=== PATIENT | female | born 1980 | race Two or more races ===

== ENCOUNTER 2016-12-21 14:30 | Inpatient (IN) | payer OTHER ==
[2016-12-21 15:46] VITALS: BMI 29.1
--- NOTE | 2016-12-21 17:28 | HP ---
COWS - Scale Resting Pulse: 0= [place] 80 or Below Sweatin= Chills/Flushing Restless Observation: 1= Difficult to Sit Still Pupil Size: 1= Pupils >than Normal Bone or Joint Aches: 2= Severe Diffuse Aches Runny Nose/ Eye Tearin= Runny Nose/Eyes GI Upset > 30mins: 2= Nausea/Diarrhea Tremor Observation: 2= Slight Tremor Visible Yawning Observation: 0= None Anxiety or Irritability: 2=Irritable/Anxious Goose Flesh Skin: 0=Smooth Skin COWS Score: 13 Admission [facility] Chief Complaint: WITHDRAWAL SX Allergies/Adverse Reactions: Allergies Allergy/AdvReac Type Severity Reaction Status Date / Time aspirin Allergy Severe Difficulty Verified 12/21/16 16:37 Breathing bee venom protein (honey bee) Allergy Severe Difficulty Verified 12/21/16 16:37 Breathing History of Present Illness: 36 YEARS OLD FEMALE WITH LONG HISTORY OF OPIATE, COCAINE, MARIJUANA, NICOTINE DEPENDENCE HAS ASTHMA HEPATITIS C AND BIPOLAR II IS ADMITTED TO DETOX Exam Limitations: No Limitations - Ebola screening Have you traveled outside of the country in the last 21 days: No Have you had contact with anyone from an Ebola affected area: No Have you been sick,other than usual withdrawal symptoms: No Do you have a fever: No - Review of Systems Constitutional: Changes in sleep, Weight Stable EENT: reports: No Symptoms Reported Respiratory: reports: SOB with Exertion Cardiac: reports: No Symptoms Reported GI: reports: Nausea, Poor Fluid Intake, Indigestion, Abdominal cramping : reports: No Symptoms Reported Musculoskeletal: reports: Back Pain, Joint Pain, Muscle Pain, Neck Pain Integumentary: reports: Change in Color (BOTH INNER ELBOWS + NECK BILATERALLY = IV OPIATE) Neuro: reports: Tremors Endocrine: reports: No Symptoms Reported Hematology: reports: No Symptoms Reported Psychiatric: reports: Judgement Intact, Orientated x3, Anxious, Depressed Other Systems: Reviewed and Negative Patient History - Patient Medical History Hx Anemia: No Hx Asthma: Yes Hx Chronic Obstructive Pulmonary Disease (COPD): No Hx Cancer: No Hx Cardiac Disorders: No Hx Congestive Heart Failure: No Hx Hypertension: No Hx Pacemaker: No HX Cerebrovascular Accident: No Hx Seizures: No Hx Dementia: No Hx Diabetes: No Hx Gastrointestinal Disorders: No Hx Liver Disease: No Hx Genitourinary Disorders: No Hx Sexually Transmitted Disorders: No Hx Renal Disease (ESRD): No Hx Thyroid Disease: No Hx Human Immunodeficiency Virus (HIV): No Hx Hepatitis C: Yes Hx Depression: No Hx Suicide Attempt: No Hx Bipolar Disorder: Yes Hx Schizophrenia: No - Patient Surgical History Past Surgical History: Yes Hx Neurologic Surgery: No Hx Cataract Extraction: No Hx Cardiac Surgery: No Hx Lung Surgery: No Hx Breast Surgery: No Hx Breast Biopsy: No Hx Abdominal Surgery: No Hx Appendectomy: Yes (in 2004) Hx Cholecystectomy: No Hx Genitourinary Surgery: No Hx Section: No Hx Orthopedic Surgery: No Hx Hysterectomy: No Other Surgical History: Partial hysterectomy in 2007 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 in 1994 Anesthesia Reaction: No - PPD History Previous Implant?: Yes Documented Results: Negative w/o proof Implanted On Prior R Admission?: No PPD to be Administered?: Yes - Reproductive History Patient is a Female of Child Bearing Age (11 -55 yrs old): Yes Last Menstrual Period: 12/22/07 Patient : No - Smoking Cessation Smoking history: Current every day smoker Have you smoked in the past 12 months: Yes Aproximately how many cigarettes per day: 30 Cigars Per Day: 0 Hx Chewing Tobacco Use: No Initiated information on smoking cessation: Yes 'Breaking Loose' booklet given: 12/21/16 - Substance & Tx. History Hx Alcohol Use: No Hx Substance Use: Yes Substance Use Type: Cocaine, Marijuana, Opiates Hx Substance Use Treatment: Yes (06/2016 [facility]) - Substances Abused Heroin Route: Injection Frequency: Daily Amount used: 6-10 bags Age of first use: 24 Date of Last Use: 12/21/16 Cocaine Route: Smoking Frequency: Daily Amount used: $100 Age of first use: 19 Date of Last Use: 12/21/16 Marijuana/Hashish Route: Smoking Frequency: 1-3 times last 30 days Amount used: $10 Age of first use: 15 Date of Last Use: 12/20/16 Family Disease History - Family Disease History Family Disease History: Diabetes: Father, Mother Admission Physical Exam S - Vital Signs Vital Signs: Vital Signs - 24 hr 12/21/16 15:41 Temperature 97.5 F L Pulse Rate 64 Respiratory 20 Rate Blood Pressure 113/69 - Physical General Appearance: Yes: Appropriately Dressed, Mild Distress, Obese, Tremorous , Irritable, Sweating, Anxious HEENTM: Yes: Hearing grossly Normal, Normal ENT Inspection, Normocephalic, Normal Voice Respiratory: Yes: Chest Non-Tender, Lungs Clear, Normal Breath Sounds, No Respiratory Distress, No Accessory Muscle Use Neck: Yes: Supple, Trachea in good position Breast: Yes: Breasts Symetrical Cardiology: Yes: Regular Rhythm, Regular Rate, S1, S2 Abdominal: Yes: Non Tender, Soft, Increased Bowel Sounds Genitourinary: Yes: Within Normal Limits Back: Yes: Normal Inspection Musculoskeletal: Yes: full range of Motion, Gait Steady, Back pain, Muscle Pain Extremities: Yes: Normal Range of Motion, Non-Tender, Tremors, Other (BOTH INNER ELBOWS) Neurological: Yes: Fully Oriented, Alert, Motor Strength 5/5, Normal Response, Depressed Affect Integumentary: Yes: Warm, Track Kelly Lymphatic: Yes: Within Normal Limits - Diagnostic (1) Opioid dependence with withdrawal Current Visit: Yes Status: Acute (2) Cocaine dependence, uncomplicated Current Visit: Yes Status: Chronic (3) Nicotine dependence Current Visit: Yes Status: Acute Qualifiers: Nicotine product type: cigarettes Substance use status: in withdrawal Qualified Code(s): F17.213 - Nicotine dependence, cigarettes, with withdrawal (4) Asthma Current Visit: Yes Status: Chronic Qualifiers: Asthma severity: mild intermittent (5) Hepatitis C carrier Current Visit: Yes Status: Chronic Comment: APPOINTMENT FOR TREATMENT (6) GERD (gastroesophageal reflux disease) Current Visit: Yes Status: Chronic Qualifiers: Esophagitis presence: without esophagitis Qualified Code(s): K21.9 - Gastro-esophageal reflux disease without esophagitis (7) Bipolar II disorder Current Visit: Yes Status: Acute Cleared for Admission [facility] - Detox or Rehab [facility] Level of Care: Medically Managed Detox Regimen/Protocol: Methadone [facility] Breath Alcohol Content Breath Alcohol Content: 0 Urine Pregancy Test - Result Urine Test Results: Negative- NO Line Present Urine Drug Screen - Results Drug Screen Negative: No Urine Drug Screen Results: THC-Marijuana, ELYSSA-Cocaine, OPI-Opiates
[2016-12-21] MEDS ORDERED: MAG HYDROX/AL HYDROX/SIMETH 30 ML UNIT-DOSE CUP PO PRN (17:34)
[2016-12-21] MEDS ORDERED: P-EPHED 60MG/TRIPROLIDI 2.5MG TABLET PO PRN (17:34)
[2016-12-21] MEDS ORDERED: METHADONE HCL 10 MG TABLET (FOR DETOX USE ONLY) PO ONE ×2 (17:34→23:00)
[2016-12-21] MEDS ORDERED: guaiFENesin/D-METHORPHAN HB 10 ML UNIT-DOSE CUPS PO PRN (17:34)
[2016-12-21] MEDS ORDERED: MENTHOL/PHENOL 1 EACH UD MM PRN (17:34)
[2016-12-21] MEDS ORDERED: MAGNESIUM CITRATE 300 ML BOTTLE PO PRN (17:34)
[2016-12-21] MEDS ORDERED: MAGNESIUM HYDROX 2400MG/30ML ORAL SUSPENSION 30 ML CUP PO PRN (17:34)
[2016-12-21] MEDS ORDERED: LOPERAMIDE HCL 2 MG CAPSULE PO PRN (17:34)
[2016-12-21] MEDS: diazePAM 5 MG TABLET PO PRN (18:43)
[2016-12-21] MEDS: ACETAMINOPHEN 325 MG TABLET (FP) PO PRN (18:44)
[2016-12-21] MEDS: GABAPENTIN 300 MG CAPSULE (FP) PO SCH (22:34)
[2016-12-21] MEDS: THIAMINE HCL 100 MG TABLET (FP) PO SCH (22:34)
[2016-12-21] MEDS: RANITIDINE HCL 150 MG TABLET (FP) PO SCH (22:34)
[2016-12-21] MEDS: diphenhydrAMINE HCL 50 MG CAPSULE PO PRN (22:35)
[2016-12-21 23:17] LABS: URINE APPEARANCE CLEAR; URINE BILIRUBIN NEGATIVE (NEGATIVE); URINE BLOOD NEGATIVE (NEGATIVE); URINE GLUCOSE (UA) NEGATIVE (NEGATIVE); URINE KETONE TRACE (NEGATIVE); URINE NITRITE NEGATIVE (NEGATIVE); URINE PROTEIN TRACE (NEGATIVE)
[2016-12-21 23:39] LABS: URINE COLOR BROWN
[2016-12-22] MEDS: GABAPENTIN 300 MG CAPSULE (FP) PO SCH ×3 (05:54→22:42)
[2016-12-22] MEDS: diazePAM 5 MG TABLET PO PRN ×4 (05:57→22:42)
[2016-12-22 09:39] LABS: MCH 28.8 pg (25.7-33.7); MEAN CELL VOLUME 87.3 fl (80-96); MEAN PLT VOLUME 9.2 fl (7.5-11.1); PLATELET COUNT 222 K/MM3 (134-434); RDW 14.9 % (11.6-15.6); WHITE BLOOD COUNT 5.9 K/mm3 (4.0-10.0)
[2016-12-22 09:58] LABS: ANION GAP 4 (8-16); CO2 28 mmol/L (21-32); GLUCOSE,RANDOM 87 mg/dL (74-106)
[2016-12-22] MEDS ORDERED: METHADONE HCL 10 MG TABLET (FOR DETOX USE ONLY) PO ONE (10:00)
[2016-12-22 10:02] LABS: ALK PHOS 57 U/L (45-117); BILIRUBIN,TOTAL 0.6 mg/dL (0.2-1.0); CREATININE 0.8 mg/dL (0.55-1.02); SGOT/AST 32 U/L (15-37); SGPT/ALT 50 U/L (12-78); TOT PROT 6.8 g/dl (6.4-8.2)
[2016-12-22] MEDS: PRENATAL VITAMINS W/ FOLIC ACID TABLET (FP) PO SCH (11:02)
[2016-12-22] MEDS: RANITIDINE HCL 150 MG TABLET (FP) PO SCH ×2 (11:02→22:42)
[2016-12-22] MEDS: NICOTINE 21 MG/24 HOURS TOPICAL PATCH TD SCH (11:02)
[2016-12-22] MEDS: NICOTINE POLACRILEX 4 MG GUM BC PRN ×2 (11:05→14:10)
--- NOTE | 2016-12-22 11:58 | PN ---
S COWS - Scale Resting Pulse: 1= [place] 81-100 Sweatin= Chills/Flushing Restless Observation: 1= Difficult to Sit Still Pupil Size: 1= Pupils >than Normal Bone or Joint Aches: 2= Severe Diffuse Aches Runny Nose/ Eye Tearin= Runny Nose/Eyes GI Upset > 30mins: 2= Nausea/Diarrhea Tremor Observation of Outstretched Hands: 1= Tremor [place], Not Seen Yawning Observation: 1= 1-2x During Session Anxiety or Irritability: 2=Irritable/Anxious Goose Flesh Skin: 3=Piloerection COWS Score: 17 BHS Progress Note (SOAP) Subjective: nausea, sweats, [id number] sleep, anxiety, tremors Objective: 12/22/16 11:57 Vital Signs - 24 hr 12/21/16 12/21/16 12/21/16 15:41 19:23 23:42 Temperature 97.5 F L 98.6 F 97.9 F Pulse Rate 64 54 L 61 Respiratory 20 18 16 Rate Blood Pressure 113/69 130/84 127/69 12/22/16 12/22/16 12/22/16 00:30 03:30 07:13 Temperature 97.9 F Pulse Rate 69 Respiratory 18 18 16 Rate Blood Pressure 132/86 12/22/16 10:44 Temperature 98.6 F Pulse Rate 96 H Respiratory 18 Rate Blood Pressure 134/71 Laboratory Tests 12/21/16 12/22/16 12/22/16 18:30 07:00 07:00 WBC 5.9 RBC 4.28 Hgb 12.3 Hct 37.4 MCV 87.3 MCH 28.8 MCHC 33.0 RDW 14.9 Plt Count 222 MPV 9.2 Sodium 141 Potassium 4.0 Chloride 109 H Carbon Dioxide 28 Anion Gap 4 L BUN 8 Creatinine 0.8 Creat Clearance w eGFR > 60 Random Glucose 87 Calcium 9.0 Total Bilirubin 0.6 AST 32 ALT 50 Alkaline Phosphatase 57 Total Protein 6.8 Albumin 3.0 L Urine Color Brown Urine Appearance Clear Urine pH 6.0 Urine Protein Trace H Urine Glucose (UA) Negative Urine Ketones Trace H Urine Blood Negative Urine Nitrite Negative Urine Bilirubin Negative Urine Urobilinogen 1.0 RPR Titer 12/22/16 07:00 WBC RBC Hgb Hct MCV MCH MCHC RDW Plt Count MPV Sodium Potassium Chloride Carbon Dioxide Anion Gap BUN Creatinine Creat Clearance w eGFR Random Glucose Calcium Total Bilirubin AST ALT Alkaline Phosphatase Total Protein Albumin Urine Color Urine Appearance Urine pH Urine Protein Urine Glucose (UA) Urine Ketones Urine Blood Urine Nitrite Urine Bilirubin Urine Urobilinogen RPR Titer Nonreactive Assessment: 12/22/16 11:58 withdrawal sx Plan: cont deto, fluids, encourage ambualtion
--- NOTE | 2016-12-22 13:09 | EKG ---
Test Reason : Blood Pressure : / mmHG Vent. Rate : 049 BPM Atrial Rate : 049 BPM P-R Int : 140 ms QRS Dur : 114 ms QT Int : 436 ms P-R-T Axes : 065 082 059 degrees QTc Int : 393 ms SINUS BRADYCARDIA WITH SINUS ARRHYTHMIA ABNORMAL ECG NO PREVIOUS ECGS AVAILABLE CLINCAL CORRELATION FOLLOW UP TRACINGS ARE RECOMMENDED Confirmed by HENNY LAWRENCE MD ([id number] on 12/22/2016 1:08:59 PM Referred By: Confirmed By:HENNY LAWRENCE MD
--- NOTE | 2016-12-22 15:43 | CONSULT ---
[facility] Psychiatric Consult - Data Date of interview: 12/22/16 Admission source: [facility] Identifying data: First admission to [facility] for this 36 y/o female seeking detox treatment on for heroin,cocaine (crack) and marijuana dependence.Patient is single,a mother of three,domiciled (intermediate),unemployed and supported on Public Assistance. Substance Abuse History: Confirmed by patient in this session. Smoking Cessation. Smoking history: Current every day smoker. Have you smoked in the past 12 months: Yes. Aproximately how many cigarettes per day: 30. Cigars Per Day: 0. Hx Chewing Tobacco Use: No. Initiated information on smoking cessation : Yes. 'Breaking Loose' booklet given: 12/21/16. - Substance & Tx. History. Hx Alcohol Use: No. Hx Substance Use: Yes. Substance Use Type: Cocaine, Marijuana, Opiates. Hx Substance Use Treatment: Yes (06/2016 [facility]). - Substances Abused. Heroin. Route: Injection. Frequency: Daily. Amount used: 6-10 bags. Age of first use: 24. Date of Last Use: 12/21/16. Cocaine. Route: Smoking. Frequency: Daily. Amount used: $100. Age of first use: 19. Date of Last Use: 12/21/16. Marijuana/Hashish. Route: Smoking. Frequency: 1-3 times last 30 days. Amount used: $10. Age of first use: 15. Date of Last Use: 12/20/16 Medical History: Bronchial asthma,hepatitis C,hypoglycemia and a history of partial hysterectomy (2007) + excision of tumor in left ovary (1994). Psychiatric History: No reported history of psychiatric hospitalizations.Patient is disgnoesd with MDD and Bipolar Disorder.Maintained on lexapro 10 mg/day + trazodone 50 mg/hs + vistaril 50 mg prn + gabapentin 600 mg po tid.Ms Lora was attending the [facility] program in [facility] ( methadone daily dose = 70 mg) until a month ago.Dropped out of that program ( unclear reasons).Patient denies history of suicide attempts. Physical/Sexual Abuse/Trauma History: Patient denies history of abuse. Additional Comment: Urine Drug Screen Results: THC-Marijuana, ELYSSA-Cocaine, OPI- Opiates.Noted. Mental Status Exam - Mental Status Exam Alert and Oriented to: Time, Place, Person Cognitive Function: Good Patient Appearance: Well Groomed Mood: Hopeful, Euthymic Affect: Appropriate, Normal Range Patient Behavior: Fatigued, Appropriate, Cooperative Speech Pattern: Clear Voice Loudness: Normal Thought Process: Intact, Goal Oriented Thought Disorder: Not Present Hallucinations: Denies Suicidal Ideation: Denies Homicidal Ideation: Denies Insight/Judgement: Poor Sleep: Poorly, Difficulty falling asleep Appetite: Good Muscle strength/Tone: Normal Gait/Station: Normal Psychiatric Findings - Problem List ([place] 1, 2,3) (1) Opioid dependence with withdrawal Current Visit: Yes Status: Acute (2) Cocaine dependence, uncomplicated Current Visit: Yes Status: Acute (3) Nicotine dependence Current Visit: Yes Status: Acute Qualifiers: Nicotine product type: cigarettes Substance use status: in withdrawal Qualified Code(s): F17.213 - Nicotine dependence, cigarettes, with withdrawal (4) Substance induced mood disorder Current Visit: Yes Status: Acute (5) Bipolar disorder Current Visit: Yes Status: Chronic Comment: Self-report. (6) Insomnia Current Visit: Yes Status: Acute (7) Asthma Current Visit: Yes Status: Chronic Qualifiers: Asthma severity: mild intermittent (8) GERD (gastroesophageal reflux disease) Current Visit: Yes Status: Chronic Qualifiers: Esophagitis presence: without esophagitis Qualified Code(s): K21.9 - Gastro-esophageal reflux disease without esophagitis (9) Hepatitis C carrier Current Visit: Yes Status: Chronic Comment: APPOINTMENT FOR TREATMENT - Initial Treatment Plan Initial Treatment Plan: Psychoeducation.Detoxification.Medications : lexapro 10 mg po daily + trazodone 50 mg po hs + gabapentin 600 mg po tid (already ordered) .Side effects/benefits discussed with patient.She agrees with this careplan.Observation.
[2016-12-22] MEDS: traZODone HCL 50 MG TABLET (FP) PO SCH (22:42)
[2016-12-22] MEDS: THIAMINE HCL 100 MG TABLET (FP) PO SCH (22:42)
[2016-12-23] MEDS: GABAPENTIN 300 MG CAPSULE (FP) PO SCH ×3 (06:02→22:28)
[2016-12-23] MEDS: diazePAM 5 MG TABLET PO PRN ×4 (06:04→22:29)
[2016-12-23] MEDS ORDERED: METHADONE HCL 5 MG TABLET (FOR DETOX USE ONLY) PO ONE (10:00)
--- NOTE | 2016-12-23 10:25 | EKG ---
Test Reason : Blood Pressure : / mmHG Vent. Rate : 072 BPM Atrial Rate : 072 BPM P-R Int : 130 ms QRS Dur : 106 ms QT Int : 380 ms P-R-T Axes : 045 074 027 degrees QTc Int : 416 ms NORMAL SINUS RHYTHM T WAVE ABNORMALITY, CONSIDER ANTERIOR ISCHEMIA ABNORMAL ECG WHEN COMPARED WITH ECG OF 21-DEC-2016 17:30, NO SIGNIFICANT CHANGE WAS FOUND Confirmed by EVA LOZANO MD ([id number]) on 12/23/2016 10:25:19 AM Referred By: Confirmed By:EVA LOZANO MD
[2016-12-23] MEDS: RANITIDINE HCL 150 MG TABLET (FP) PO SCH ×2 (10:33→22:28)
[2016-12-23] MEDS: ESCITALOPRAM OXALATE 10 MG TABLET (FP) PO SCH (10:33)
[2016-12-23] MEDS: PRENATAL VITAMINS W/ FOLIC ACID TABLET (FP) PO SCH (10:33)
[2016-12-23] MEDS: NICOTINE 21 MG/24 HOURS TOPICAL PATCH TD SCH (10:34)
[2016-12-23] MEDS: ACETAMINOPHEN 325 MG TABLET (FP) PO PRN (10:36)
[2016-12-23] MEDS: NICOTINE POLACRILEX 4 MG GUM BC PRN ×4 (10:36→22:43)
--- NOTE | 2016-12-23 12:43 | PN ---
S COWS - Scale Resting Pulse: 0= [place] 80 or Below Sweatin=Flushed/Facial Moisture Restless Observation: 1= Difficult to Sit Still Pupil Size: 0= Normal to Room Light Bone or Joint Aches: 2= Severe Diffuse Aches Runny Nose/ Eye Tearin= Nasal Congestion GI Upset > 30mins: 1= Stomach Cramp Tremor Observation of Outstretched Hands: 2= Slight Tremor Visible Yawning Observation: 2= >3x During Session Anxiety or Irritability: 2=Irritable/Anxious Goose Flesh Skin: 3=Piloerection COWS Score: 16 BHS Progress Note (SOAP) Subjective: agitation anxiety sweats shakes interrupted sleep body aches Objective: 12/23/16 12:41 Vital Signs Temperature 98.1 F 12/23/16 10:00 Pulse Rate 68 12/23/16 10:00 Respiratory Rate 18 12/23/16 10:00 Blood Pressure 113/76 12/23/16 10:00 O2 Sat by Pulse Oximetry (%) Laboratory Tests 12/21/16 12/22/16 12/22/16 18:30 07:00 07:00 WBC 5.9 RBC 4.28 Hgb 12.3 Hct 37.4 MCV 87.3 MCH 28.8 MCHC 33.0 RDW 14.9 Plt Count 222 MPV 9.2 Sodium 141 Potassium 4.0 Chloride 109 H Carbon Dioxide 28 Anion Gap 4 L BUN 8 Creatinine 0.8 Creat Clearance w eGFR > 60 Random Glucose 87 Calcium 9.0 Total Bilirubin 0.6 AST 32 ALT 50 Alkaline Phosphatase 57 Total Protein 6.8 Albumin 3.0 L Urine Color Brown Urine Appearance Clear Urine pH 6.0 Ur Specific [place] 1.025 Urine Protein Trace H Urine Glucose (UA) Negative Urine Ketones Trace H Urine Blood Negative Urine Nitrite Negative Urine Bilirubin Negative Urine Urobilinogen 1.0 RPR Titer 12/22/16 07:00 WBC RBC Hgb Hct MCV MCH MCHC RDW Plt Count MPV Sodium Potassium Chloride Carbon Dioxide Anion Gap BUN Creatinine Creat Clearance w eGFR Random Glucose Calcium Total Bilirubin AST ALT Alkaline Phosphatase Total Protein Albumin Urine Color Urine Appearance Urine pH Ur Specific [place] Urine Protein Urine Glucose (UA) Urine Ketones Urine Blood Urine Nitrite Urine Bilirubin Urine Urobilinogen RPR Titer Nonreactive awake/alert ambulating no acute distress Assessment: 12/23/16 12:42 withdrawal sx Plan: continue detox increase fluids
[2016-12-23] MEDS: ALBUTEROL SO4 6.7 GM HFA INHALER IH PRN (17:06)
[2016-12-23] MEDS: diphenhydrAMINE HCL 50 MG CAPSULE PO PRN (22:28)
[2016-12-23] MEDS: THIAMINE HCL 100 MG TABLET (FP) PO SCH (22:28)
[2016-12-23] MEDS: traZODone HCL 50 MG TABLET (FP) PO SCH (22:28)
[2016-12-24] MEDS: GABAPENTIN 300 MG CAPSULE (FP) PO SCH ×3 (06:28→22:34)
[2016-12-24] MEDS: diazePAM 5 MG TABLET PO PRN ×3 (06:29→14:58)
[2016-12-24] MEDS ORDERED: METHADONE HCL 5 MG TABLET (FOR DETOX USE ONLY) PO ONE (10:00)
[2016-12-24] MEDS: PRENATAL VITAMINS W/ FOLIC ACID TABLET (FP) PO SCH (11:00)
[2016-12-24] MEDS: ESCITALOPRAM OXALATE 10 MG TABLET (FP) PO SCH (11:00)
[2016-12-24] MEDS: RANITIDINE HCL 150 MG TABLET (FP) PO SCH ×2 (11:00→22:34)
[2016-12-24] MEDS: NICOTINE 21 MG/24 HOURS TOPICAL PATCH TD SCH (11:02)
[2016-12-24] MEDS: ALBUTEROL SO4 6.7 GM HFA INHALER IH PRN ×2 (11:02→14:59)
[2016-12-24] MEDS: NICOTINE POLACRILEX 4 MG GUM BC PRN ×3 (11:03→23:14)
[2016-12-24] MEDS: ACETAMINOPHEN 325 MG TABLET (FP) PO PRN (11:27)
--- NOTE | 2016-12-24 11:43 | PN ---
BHS Progress Note (SOAP) Subjective: agitation sweats irritable interrupted sleep Objective: 12/24/16 11:42 Vital Signs Temperature 96.6 F L 12/24/16 10:08 Pulse Rate 81 12/24/16 10:08 Respiratory Rate 16 12/24/16 10:08 Blood Pressure 115/71 12/24/16 10:08 O2 Sat by Pulse Oximetry (%) awake/alert ambulating no acute distress Assessment: 12/24/16 11:42 withdrawal sx Plan: continue detox increase fluids
[2016-12-24] MEDS: traZODone HCL 50 MG TABLET (FP) PO SCH (22:33)
[2016-12-24] MEDS: diphenhydrAMINE HCL 50 MG CAPSULE PO PRN (22:33)
[2016-12-24] MEDS: THIAMINE HCL 100 MG TABLET (FP) PO SCH (22:34)
[2016-12-25] MEDS: GABAPENTIN 300 MG CAPSULE (FP) PO SCH ×3 (06:06→22:45)
[2016-12-25] MEDS: hydrOXYzine PAMOATE 50 MG CAPSULE (FP) PO PRN ×2 (07:15→11:12)
[2016-12-25] MEDS ORDERED: METHADONE HCL 10 MG TABLET (FOR DETOX USE ONLY) PO ONE (10:00)
[2016-12-25] MEDS: PRENATAL VITAMINS W/ FOLIC ACID TABLET (FP) PO SCH (10:54)
[2016-12-25] MEDS: ESCITALOPRAM OXALATE 10 MG TABLET (FP) PO SCH (10:54)
[2016-12-25] MEDS: NICOTINE 21 MG/24 HOURS TOPICAL PATCH TD SCH (10:54)
[2016-12-25] MEDS: RANITIDINE HCL 150 MG TABLET (FP) PO SCH ×2 (10:54→22:45)
[2016-12-25] MEDS: cloNIDine HCL 0.1 MG TABLET PO SCH ×2 (11:48→22:45)
[2016-12-25] MEDS: PANTOPRAZOLE 40 MG TABLET (FP) PO SCH (11:48)
--- NOTE | 2016-12-25 13:17 | PN ---
BHS Progress Note (SOAP) Subjective: sweats anxiety headache Objective: 12/25/16 13:17 Vital Signs Temperature 98.1 F 12/25/16 09:48 Pulse Rate 74 12/25/16 09:48 Respiratory Rate 18 12/25/16 09:48 Blood Pressure 119/67 12/25/16 09:48 O2 Sat by Pulse Oximetry (%) AAOx3 ambulating no acute distress Assessment: 12/25/16 13:17 mild withdrawal sx Plan: continue detox increase fluids d/c in am
[2016-12-25] MEDS: CYCLOBENZAPRINE HCL 10 MG TABLET (FP) PO SCH ×2 (14:01→22:45)
[2016-12-25] MEDS: NAPROXEN 500 MG TABLET (FP) PO SCH ×2 (16:59→22:45)
[2016-12-25] MEDS ORDERED: ZOLPIDEM TARTRATE 10 MG TABLET (PARK CARE ONLY) PO PRN (22:00)
[2016-12-25] MEDS: THIAMINE HCL 100 MG TABLET (FP) PO SCH (22:44)
[2016-12-25] MEDS: traZODone HCL 50 MG TABLET (FP) PO SCH (22:45)
[2016-12-26] MEDS: CYCLOBENZAPRINE HCL 10 MG TABLET (FP) PO SCH (05:35)
[2016-12-26] MEDS: GABAPENTIN 300 MG CAPSULE (FP) PO SCH (05:35)
[2016-12-26] MEDS: hydrOXYzine PAMOATE 50 MG CAPSULE (FP) PO PRN (05:36)
[2016-12-26] MEDS ORDERED: METHADONE HCL 5 MG TABLET (FOR DETOX USE ONLY) PO ONE (06:00)
[2016-12-26 11:15] VITALS: BP 115/66; PULSE 83; TEMP 97.9
[2016-12-26] MEDS: PANTOPRAZOLE 40 MG TABLET (FP) PO SCH (11:15)
[2016-12-26] MEDS: PRENATAL VITAMINS W/ FOLIC ACID TABLET (FP) PO SCH (11:15)
[2016-12-26] MEDS: NAPROXEN 500 MG TABLET (FP) PO SCH (11:15)
[2016-12-26] MEDS: cloNIDine HCL 0.1 MG TABLET PO SCH (11:15)
[2016-12-26] MEDS: ESCITALOPRAM OXALATE 10 MG TABLET (FP) PO SCH (11:16)
[2016-12-26] MEDS: RANITIDINE HCL 150 MG TABLET (FP) PO SCH (11:16)
--- NOTE | 2016-12-26 13:48 | DS ---
[facility] Detox Discharge Summary Admission Date: 12/21/16 Discharge Date: 12/26/16 - History Present History: Cocaine Dependence, Opioid Dependence Pertinent Past History: asthma, hep C carrier, GERD and insomnia - Physical Exam Results Vital Signs: Vital Signs Temperature 97.9 F 12/26/16 11:14 Pulse Rate 83 12/26/16 11:14 Respiratory Rate 18 12/26/16 11:14 Blood Pressure 115/66 12/26/16 11:14 O2 Sat by Pulse Oximetry (%) Pertinent Admission Physical Exam Findings: withdrawal sx Laboratory Last Values WBC 5.9 K/mm3 (4.0-10.0) 12/22/16 07:00 RBC 4.28 M/mm3 (3.60-5.2) 12/22/16 07:00 Hgb 12.3 GM/dL (10.7-15.3) 12/22/16 07:00 Hct 37.4 % (32.4-45.2) 12/22/16 07:00 MCV 87.3 fl (80-96) 12/22/16 07:00 MCH 28.8 pg (25.7-33.7) 12/22/16 07:00 MCHC 33.0 g/dl (32.0-36.0) 12/22/16 07:00 RDW 14.9 % (11.6-15.6) 12/22/16 07:00 Plt Count 222 K/MM3 (134-434) 12/22/16 07:00 MPV 9.2 fl (7.5-11.1) 12/22/16 07:00 Sodium 141 mmol/L (136-145) 12/22/16 07:00 Potassium 4.0 mmol/L (3.5-5.1) 12/22/16 07:00 Chloride 109 mmol/L (98-107) H 12/22/16 07:00 Carbon Dioxide 28 mmol/L (21-32) 12/22/16 07:00 Anion Gap 4 (8-16) L 12/22/16 07:00 BUN 8 mg/dL (7-18) 12/22/16 07:00 Creatinine 0.8 mg/dL (0.55-1.02) 12/22/16 07:00 Creat Clearance w eGFR > 60 (>60) 12/22/16 07:00 Random Glucose 87 mg/dL (74-106) 12/22/16 07:00 Calcium 9.0 mg/dL (8.5-10.1) 12/22/16 07:00 Total Bilirubin 0.6 mg/dL (0.2-1.0) 12/22/16 07:00 AST 32 U/L (15-37) 12/22/16 07:00 ALT 50 U/L (12-78) 12/22/16 07:00 Alkaline Phosphatase 57 U/L (45-117) 12/22/16 07:00 Total Protein 6.8 g/dl (6.4-8.2) 12/22/16 07:00 Albumin 3.0 g/dl (3.4-5.0) L 12/22/16 07:00 Urine Color Brown 12/21/16 18:30 Urine Appearance Clear 12/21/16 18:30 Urine pH 6.0 (5.0-8.0) 12/21/16 18:30 Ur Specific [place] 1.025 (1.005-1.025) 12/21/16 18:30 Urine Protein Trace (NEGATIVE) H 12/21/16 18:30 Urine Glucose (UA) Negative (NEGATIVE) 12/21/16 18:30 Urine Ketones Trace (NEGATIVE) H 12/21/16 18:30 Urine Blood Negative (NEGATIVE) 12/21/16 18:30 Urine Nitrite Negative (NEGATIVE) 12/21/16 18:30 Urine Bilirubin Negative (NEGATIVE) 12/21/16 18:30 Urine Urobilinogen 1.0 mg/dL (0.2-1.0) 12/21/16 18:30 RPR Titer Nonreactive (NONREACTIVE) 12/22/16 07:00 labs noted - Treatment Hospital Course: Detox Protocol Followed, Detoxed Safely, Responded well, Discharged Condition Good - Medication Discharge Medications: Ambulatory Orders Albuterol Sulfate Inhaler - [Ventolin Hfa Inhaler -] 2 inh PO Q4H PRN 12/21/16 Gabapentin [Neurontin] 600 mg PO Q8H 12/21/16 Hydroxyzine Pamoate [Vistaril -] 50 mg PO TID PRN 12/21/16 Trazodone HCl [Desyrel -] 50 mg PO HS 12/21/16 Naproxen [Naprosyn -] 500 mg PO BID 12/25/16 - Diagnosis (1) Bipolar II disorder Current Visit: Yes Status: Chronic (2) Asthma Current Visit: Yes Status: Chronic Qualifiers: Asthma severity: mild intermittent (3) Cocaine dependence, uncomplicated Current Visit: Yes Status: Acute (4) GERD (gastroesophageal reflux disease) Current Visit: Yes Status: Chronic Qualifiers: Esophagitis presence: without esophagitis Qualified Code(s): K21.9 - Gastro-esophageal reflux disease without esophagitis (5) Nicotine dependence Current Visit: Yes Status: Acute Qualifiers: Nicotine product type: cigarettes Substance use status: uncomplicated Qualified Code(s): F17.210 - Nicotine dependence, cigarettes, uncomplicated - AMA Did Patient Leave Against Medical Advice: No
== END 2016-12-26 13:43 | disposition home or self-care (01) | DRG 773 ==
LOC: YASAS 14:30 → Y6N 17:38
PROVIDERS: ADMIT Internal Medicine; ATTEND Internal Medicine
PROC: HZ2ZZZZ Detoxification Services for Substance Abuse Treatment (ICD-10-PCS; principal; 2016-12-21)
DX: F11.23 Opioid dependence with withdrawal (principal); F14.20 Cocaine dependence, uncomplicated; F31.81 Bipolar II disorder; F17.210 Nicotine dependence, cigarettes, uncomplicated; F19.24 Other psychoactive substance dependence with psychoactive substance-induced mood disorder; G47.00 Insomnia, unspecified; K21.9 Gastro-esophageal reflux disease without esophagitis
CPT/HCPCS: 36415; 80053; 81003; 85027; 86593; 93005; 93010